=== PATIENT | female | born 1985 | race Caucasian/White ===

== ENCOUNTER 2016-05-21 06:32 | Outpatient (CLI) | payer MEDICAID, OTHER | END 2016-05-21 06:33 | disposition home or self-care (01) | DX: Z36 Encounter for antenatal screening of mother (principal) ==

== ENCOUNTER 2016-06-21 07:31 | Outpatient (CLI) | payer BC, MEDICAID | END 2016-06-21 07:32 | disposition home or self-care (01) | DX: Z34.82 Encounter for supervision of other normal pregnancy, second trimester (principal) ==

== ENCOUNTER 2017-12-18 11:54 | Outpatient (CLI) | payer OTHER, MEDICAID | END 2017-12-18 11:55 | disposition home or self-care (01) | LOC: LAB.R 11:54 | PROVIDERS: ATTEND Obstetrics & Gynecology | DX: R10.2 Pelvic and perineal pain (principal); Z11.3 Encounter for screening for infections with a predominantly sexual mode of transmission | CPT/HCPCS: 87491; 87591 ==

== ENCOUNTER 2017-12-19 08:00 | Outpatient (CLI) | payer OTHER, MEDICAID | END 2017-12-19 08:01 | disposition home or self-care (01) | LOC: LAB.N 08:00 | PROVIDERS: ATTEND Obstetrics & Gynecology | DX: R10.2 Pelvic and perineal pain (principal); Z11.3 Encounter for screening for infections with a predominantly sexual mode of transmission | CPT/HCPCS: 36415; 85651 ==

== ENCOUNTER 2017-12-29 16:43 | Outpatient (CLI) | payer OTHER, MEDICAID ==
--- NOTE | 2017-12-30 02:24 | Ultrasound Report ---
Reason: PELVIC AND PERINEAL PAIN Procedure Date: 12/29/2017 Accession Number: [id number] / [id number] Procedure: US - Pelvic w/Transvaginal CPT Code: FULL RESULT: EXAM: PELVIC ULTRASOUND EXAM DATE: 12/29/2017 05:31 PM. CLINICAL HISTORY: Pelvic pain. COMPARISON: None. TECHNIQUE: Real-time transabdominal pelvic scan performed to identify the uterus and adnexa and as an overview of other pelvic structures, followed by transvaginal scan to provide greater detail of the uterus and adnexa, with static image documentation. FINDINGS: Uterus: 8.3 x 4.3 x 6.5 cm, volume 121.3 cc. Anteverted position. Normal overall size and echotexture. Masses: None. Endometrium: 7.1 mm. No mass or polyp. Small echogenic foci are noted in the endometrium. Cervix: Unremarkable. Right Ovary: 3.7 x 2.2 x 2.2 cm, volume 9.4 cc. Normal echotexture and blood flow. Left Ovary: 2.8 x 1.3 x 2.8 cm, volume 5.3 cc. Normal echotexture and blood flow. Free Fluid: Trace free fluid noted. Other: None. IMPRESSION: 1. No endometrial mass or polyp. Small echogenic endometrial calcifications. 2. No uterine fibroids. 3. Both ovaries and adnexa are normal. RADIA
== END 2017-12-29 16:44 | disposition home or self-care (01) ==
LOC: DI 16:43
PROVIDERS: ATTEND Obstetrics & Gynecology
DX: R10.2 Pelvic and perineal pain (principal)
CPT/HCPCS: 76830; 76856

== ENCOUNTER 2018-02-10 14:25 | Outpatient (CLI) | payer OTHER, MEDICAID ==
[2018-02-10 15:26] LABS: CALCIUM 8.5 mg/dL (8.5-10.3); CREATININE 0.6 mg/dL (0.4-1.0)
[2018-02-10 15:41] LABS: BASOPHILS % (AUTO) 0.4 %; EOSINOPHILS # (AUTO) 0.1 10^3/uL (0.0-0.7); EOSINOPHILS % (AUTO) 1.9 %; HGB - HEMOGLOBIN 14.1 g/dL (12.0-16.0); LYMPHOCYTES # (AUTO) 1.6 10^3/uL (1.5-3.5); LYMPHOCYTES % (AUTO) 27.9 %; MEAN CORPUSCULAR HEMOGLOBIN 30.1 pg (27.0-31.0); MEAN CORPUSCULAR VOLUME 88.8 fL (81.0-99.0); MEAN PLATELET VOLUME 9.2 fL (7.9-10.8); MONOCYTES # (AUTO) 0.3 10^3/uL (0.0-1.0); MONOCYTES % (AUTO) 6.1 %; NEUTROPHILS # (AUTO) 3.6 10^3/uL (1.5-6.6); NEUTROPHILS % (AUTO) 63.7 %; PLT - PLATELET COUNT 177 10^3/uL (130-450); RED BLOOD COUNT 4.68 10^6/uL (4.20-5.40); RED CELL DISTRIBUTION WIDTH 13.1 % (12.0-15.0); WHITE BLOOD COUNT 5.6 x10^3/uL (4.8-10.8)
[2018-02-10 16:14] LABS: HCG UR QUAL NEGATIVE
== END 2018-02-10 14:26 | disposition home or self-care (01) ==
LOC: LAB 14:25
PROVIDERS: ATTEND Obstetrics & Gynecology
DX: Z01.812 Encounter for preprocedural laboratory examination (principal); R10.2 Pelvic and perineal pain; N92.0 Excessive and frequent menstruation with regular cycle
CPT/HCPCS: 36415; 80048; 81025; 85025; 86850; 86900; 86901

== ENCOUNTER 2018-02-11 06:14 | Day surgery (SDC) | payer OTHER, MEDICAID ==
--- NOTE | 2018-02-10 14:59 | PREOP HISTORY & PHYSICAL ---
DATE OF SERVICE: 02/10/2018 Physician: Eric Trejo MD PATIENT IDENTIFICATION: The patient is a 32-year-old G4, P4, female whose last menstrual period is S eptember 28. She is currently using condoms for contraception. CHIEF COMPLAINT: Pelvic pain as well as heavy vaginal bleeding. HISTORY OF PRESENT ILLNESS: The patient states that roughly 2 years ago, she developed right-sided p elvic pain. She states that she has had this around when she had an IUD. She states the pain is 7/1 0. It is enough to take her down at work. She is still able to work through it and is utilizing Mot rin. She has a history of having chlamydia infection in the remote past, roughly 17 years ago. She has not had an appendectomy. She also states she has pain with intercourse with deep penetration. S he also has difficulty with heavy vaginal bleeding, enough to make her anemic. She has been tried an IUD Mirena without success. She will need to change a pad or tampon every 2 hours. She will cramp when she passes clots. She also has a history of anemia. PAST MEDICAL HISTORY: Positive for anxiety and anemia. PAST SURGICAL HISTORY: LEEP. CURRENT MEDICATIONS: Celexa 10 mg daily, vitamin D, iron. ALLERGIES: NONE KNOWN. HABITS: The patient denies use of alcohol, tobacco or street or addictive drugs. SOCIAL HISTORY: The patient is and lives with spouse and children. Works as a [employer]. FAMILY HISTORY: Positive for diabetes. She denies any CORPORATE COMPLIANCE OFFICER cancer, such as cervix, breast or ovarian cancer. REVIEW OF SYSTEMS: Unremarkable. PHYSICAL EXAMINATION GENERAL: The patient is a well-developed, well-nourished white female. At this time, she is in no a cute distress. HEENT: Pupils are equal and round. Extraocular muscles are intact. Thyroid is not palpably enlarge d. Mouth shows evidence of a tongue piercing. HEART: Regular rate and rhythm without murmurs. LUNGS: Lung roy are clear without rales or wheezes. ABDOMEN: Shows tenderness in the right lower quadrant. There is no evidence of rebound, or masses. PELVIC: Previous pelvic: Showed normal external genitalia. The bladder was normal. The introitus was multiparous. There was no evidence of any cystocele or rectoceles at this time. Cervix showed e vidence of a previous LEEP procedure. Uterus was anteflexed without masses. There was tenderness in the right adnexa. IMPRESSION: Pelvic pain. This most likely represents adhesions on the right hand side and that is n ot menstrual related. She also has a history of menorrhagia. PLAN: Perform laparoscopy looking for evidence of adhesions and lysis if present. We will also perf orm a hysteroscopy with D and C. Risks and benefits have been explained to the patient, including th ose not limited to bleeding, infection, injury to pelvic organs. She is aware of the potential for D VT, PE, as well as postop adhesions, which could cause pain, bowel obstruction and infertility. TD: 02/10/2018 14:14
[2018-02-11] MEDS ORDERED: ceFAZolin 2 GM/50 ML 2 GM/50 ML BAG IV ONE (06:30)
[2018-02-11] MEDS ORDERED: LACTATED RINGERS 1,000 ML IV ONE ×2 (06:59→09:24)
--- NOTE | 2018-02-11 07:19 | ANESTHESIA ---
Pre-Anesthesia VS, & Labs - Diagnosis pelvic pain, menorrhagia - Procedure Dx laparoscopy, myosure hysteroscopy, D&C Height 5 ft 5 in Weight (kg) 62 kg - NPO >8 hours - Is Patient ?: No - Lab Results Lab results reviewed: Yes Home Medications and Allergies Home Medications: Ambulatory Orders Cholecalciferol (Vitamin D3) [Vitamin D3] 1 unit PO DAILY 02/10/18 Citalopram [CeleXA] 10 mg PO DAILY 02/10/18 Cholecalciferol (Vitamin D3) [Vitamin D3] 1 unit PO DAILY 02/10/18 Citalopram [CeleXA] 10 mg PO DAILY 02/10/18 Allergies/Adverse Reactions: Allergies Allergy/AdvReac Type Severity Reaction Status Date / Time bee venom protein (honey bee) Allergy Anaphylaxis Verified 02/10/18 16:02 Plastic tape/ adhesives Allergy Rash Uncoded 02/11/18 06:51 bee stings AdvReac Unknown Unknown Uncoded 09/17/13 13:43 Anes History & Medical History - Anesthetic History Anesthesia Complications: reports: No previous complications Family history of Anesthesia Complications: Denies Family history of Malignant Hyperthermia: Denies - Medical History Cardiovascular: reports: None Pulmonary: reports: None Gastrointestinal: reports: None Urinary: reports: None Musculoskeletal: reports: None Endocrine/Autoimmune: reports: None Skin: reports: None Smoking Status: Never smoker - Surgical History Gynecologic: LEEP (Cervical surgery) Exam General: Alert, Oriented x3, Cooperative, No acute distress Dental: Partials Upper Mouth Openin Fingerbreadth Neck Mobility: Normal Mallampati classification: II Respiratory: Lungs clear, Normal breath sounds, No respiratory distress, No accessory muscle use Cardiovascular: Regular rate, Normal S1, Normal S2, No murmurs Neurological: Normal speech Mental/Cognitive Status: Alert/Oriented X3 Cognitive Status: Within normal limits Plan Anesthesia Type: General Consent for Procedure(s) Verified and Reviewed: Yes Code Status: Attempt Resuscitation ASA classification: 2-Mild systemic disease Is this case an emergency?: No
[2018-02-11] MEDS ORDERED: BUPIVACAINE 0.5%-EPI 1:200000 PF 10 ML VIAL ONE (07:21)
[2018-02-11] MEDS ORDERED: DEXAMETHASONE 4 MG/ML VIAL IVP ONE (07:30)
[2018-02-11] MEDS ORDERED: PROPOFOL 200 MG/20 ML VIAL IVP ONE (07:30)
[2018-02-11] MEDS ORDERED: LIDOCAINE-MPF 2% 5 ML VIAL IM ONE (07:30)
[2018-02-11] MEDS ORDERED: KETOROLAC 30 MG/ML VIAL IVP ONE (07:30)
[2018-02-11] MEDS ORDERED: NEOSTIGMINE 1 MG/1 ML 10 ML MDV IVP ONE (07:30)
[2018-02-11] MEDS ORDERED: fentaNYL 100 MCG/2 ML VIAL IVP ONE (07:30)
[2018-02-11] MEDS ORDERED: ONDANSETRON 4 MG/2 ML VIAL IVP ONE (07:30)
[2018-02-11] MEDS ORDERED: ROCURONIUM 50 MG/5 ML VIAL IVP ONE (07:30)
[2018-02-11] MEDS ORDERED: METHYLERGONOVINE 0.2 MG/ML AMP IVP ONE (07:30)
[2018-02-11] MEDS ORDERED: MIDAZOLAM 2 MG/2 ML VIAL IVP ONE (07:30)
[2018-02-11] MEDS ORDERED: GLYCOPYRROLATE 1 MG/5 ML VIAL IVP ONE (07:30)
[2018-02-11] MEDS ORDERED: BUPIVACAINE 0.5%-EPI 1:200000 PF 30 ML VIAL SUBQ ONE (08:09)
[2018-02-11] MEDS ORDERED: MEPERIDINE 50 MG/ML VIAL ONE (09:12)
[2018-02-11] MEDS ORDERED: HYDROmorphone 0.5 MG/0.5 ML SYRINGE IVP PRN (09:24)
[2018-02-11] MEDS ORDERED: ONDANSETRON 4 MG/2 ML VIAL IVP PRN (09:24)
[2018-02-11] MEDS ORDERED: oxyCODONE 5 MG TABLET PO PRN (09:24)
[2018-02-11] MEDS ORDERED: LORazepam 2 MG/ML VIAL IVP PRN (09:24)
--- NOTE | 2018-02-11 09:30 | OPERATIVE REPORT ---
Operative Report - General Procedure Date: 02/11/18 Planned Procedure: Dx Laproscopy with Hysterscopy with D&C Pre-Op Diagnosis: right sided Pelvic pain, Menorrhagia Procedure Performed: Same - Procedure Note Primary Surgeon: Eric Trejo MD Secondary Surgeon: Eric Trammell MD Anesthesia Technique: General ET tube IV Fluids (mL): 1,100 Estimated Blood Loss (mL): 100
[2018-02-11 10:39] VITALS: BP 118/71
--- NOTE | 2018-02-11 11:34 | OPERATIVE REPORT ---
DATE OF SERVICE: 02/11/2018 Physician: Eric Trejo MD PREOPERATIVE DIAGNOSIS 1. Noncyclic right-sided pelvic pain, suspect adhesions. 2. Menorrhagia. POSTOPERATIVE DIAGNOSIS: 1. Normal pelvis without evidence of any adhesions or endometriosis. 2. Endometrial cavity was without polyps, fibroids, or other intraluminal structures. SURGEON: Dr. Eric Trejo. MEDICAL LABORATORY SCIENTIST: Dr. Eric Trammell. ANESTHESIA: General via endotracheal tube with Roney Castro CRNA. ESTIMATED BLOOD LOSS: 100 mL. IV FLUIDS: 1100 of LR. FINDINGS: Upon entering the abdominal cavity, there was no evidence of any injury at site of insertion. Tubes, ovaries, and bowel appeared to be totally free of adhesions or endometriosis. The ureters were noted to be in their normal course. The appendix appeared to be free of disease as well as gallbladder. Entering the endometrial cavity, both cornua were visualized. There was no evidence of any polyps, fibroids. The endometrial cavity appeared to be without evidence of any hyperemia. PROCEDURE: Following adequate endotracheal anesthesia, patient was placed in dorsal lithotomy position in [facility]. At this point, a pelvic examination was performed, at which the uterus was noted to be anterior, probably about 8-9 cm, the adnexa were not palpably enlarged, and there was no evidence of any masses. She was then prepped and draped in the usual fashion. A timeout was then performed in which that time, the patient was identified as well as concerned. A speculum was placed in the vagina, cervix visualized, grasped with a single-tooth tenaculum, and then an acorn manipulator was placed in the cervical os. At this time, the stitcher set up operator automatic's gloves were changed and a stab wound was made in the subumbilical region following local anesthesia with 0.25% Marcaine with epinephrine. Peritoneum was entered on a single pass with a 5 mm port with a laparoscope inside. Left and right lower quadrant incisions were made following local anesthesia 0.25% Marcaine with epinephrine. Both 5 mm trocars were placed under direct visualization. The site of insertion was inspected, and no evidence of any injury. The entire pelvis was inspected without evidence of adhesions, endometriosis. There was some what appeared to be hyperemia. The round ligament insertion was noted to be normal. The ureter on the right hand side as well as the left hand side were visualized and noted to be nondilated. The gallbladder was inspected, noted to be without adhesions. The appendix was noted to be nonhyperemic. At this point, the laparoscope was removed from the abdominal cavity, and the CO2 was allowed to escape. The ports were allowed to remain in their place. Attention was then turned to the vagina. The cervix was visualized, a speculum was placed, and the cervix was dilated up to 6 mm. A MyoSure was then introduced into the endometrial cavity. Both ostia were inspected bilaterally. The endometrial cavity was without polyps or fibroids. The posterior endometrium showed evidence of the previous dilatation. A MyoSure was conducted over a part of the endometrial lining. During this time, she was noted to have 1100 mL of deficit of her normal saline, and so the procedure was terminated. Upon doing a manual recalculation, the deficit was only 500 mL of normal saline. At this point, the stitcher set up operator automatic's gloves were changed, and a second camera and cord were placed in the abdominal cavity. The abdomen was inspected. There was scant fluid in the cul-de-sac. There was no evidence of any extravasation of fluid in the abdominal cavity. At this time, both left and right trocars were removed under direct visualization. The CO2 was allowed to escape as much as possible. Following this, the subumbilical port was removed. Both ports were closed with 4-0 Monocryl subcuticular with Dermabond being placed. The instruments were then removed from the vagina. Patient tolerated procedure well and was taken to recovery in stable condition. TD: 02/11/2018 09:47 FRANK
== END 2018-02-11 06:15 | disposition home or self-care (01) ==
LOC: SDS 06:14
PROVIDERS: ATTEND Obstetrics & Gynecology
PROC: 0WJJ4ZZ Inspection of Pelvic Cavity, Percutaneous Endoscopic Approach (ICD-10-PCS; 2018-02-11)
PROC: 0UDB8ZX Extraction of Endometrium, Via Natural or Artificial Opening Endoscopic, Diagnostic (ICD-10-PCS; principal; 2018-02-11 07:30)
DX: R10.2 Pelvic and perineal pain (principal); N92.0 Excessive and frequent menstruation with regular cycle; E11.9 Type 2 diabetes mellitus without complications
CPT/HCPCS: 49320; 58558; J0690; J2175; J7120

== ENCOUNTER 2019-03-10 10:34 | Outpatient (CLI) | payer BC, OTHER ==
--- NOTE | 2019-03-10 15:04 | XRAY Report ---
Reason: PAIN IN RIGHT HAND Procedure Date: 03/10/2019 Accession Number: [id number] / [id number] Procedure: XRN - Hand 3 View RT CPT Code: Final Report FULL RESULT: EXAM: RIGHT HAND RADIOGRAPHY EXAM DATE: 03/10/2019 10:52 AM. CLINICAL HISTORY: Pain in right hand. COMPARISON: None. TECHNIQUE: 3 views. FINDINGS: Bones: Normal. No fractures or bone lesions. Joints: Normal. No subluxations. Soft Tissues: Normal. No soft tissue swelling. IMPRESSION: Normal hand radiography. RADIA
== END 2019-03-10 10:35 | disposition home or self-care (01) ==
LOC: DI.N 10:34
PROVIDERS: ATTEND Physician Assistant Medical
DX: M79.641 Pain in right hand (principal)

== ENCOUNTER 2019-11-24 13:50 | Outpatient (CLI) | payer BC ==
[2019-11-24 14:24] LABS: CHOL/HDL RATIO 2.4 (<4.4); CHOLESTEROL 151 mg/dL; HDL CHOLESTEROL 63 mg/dL; LDL CHOLESTEROL,CALCULATED 74 mg/dL; LDL/HDL RATIO 1.2 (<4.4); VLDL CHOLESTEROL 14 mg/dL
[2019-11-25 11:43] LABS: HIV AG/AB 4TH GEN NON-REACTIVE (NON-REACTIVE)
[2019-11-25 16:08] LABS: HEPATITIS B SURFACE ANTIGEN NON-REACTIVE (NON-REACTIVE)
== END 2019-11-24 13:51 | disposition home or self-care (01) ==
LOC: LAB 13:50
PROVIDERS: ATTEND Obstetrics & Gynecology
DX: Z13.220 Encounter for screening for lipoid disorders (principal); Z11.3 Encounter for screening for infections with a predominantly sexual mode of transmission
CPT/HCPCS: 36415; 80061; 81599; 83721; 86592; 87340; 87389

== ENCOUNTER 2021-07-24 10:05 | Outpatient (CLI) | payer BC ==
[2021-07-24 11:51] LABS: BASOPHILS % (AUTO) 0.2 %; EOSINOPHILS # (AUTO) 0.1 10^3/uL (0.0-0.7); EOSINOPHILS % (AUTO) 1.1 %; HCT - HEMATOCRIT 43.4 % (37.0-47.0); HGB - HEMOGLOBIN 14.5 g/dL (12.0-16.0); LYMPHOCYTES # (AUTO) 1.8 10^3/uL (1.5-3.5); LYMPHOCYTES % (AUTO) 32.6 %; MEAN CORPUSCULAR HEMOGLOBIN 30.3 pg (27.0-31.0); MEAN CORPUSCULAR HGB CONC 33.4 g/dL (32.0-36.0); MEAN CORPUSCULAR VOLUME 90.8 fL (81.0-99.0); MEAN PLATELET VOLUME 9.9 fL (7.9-10.8); MONOCYTES # (AUTO) 0.4 10^3/uL (0.0-1.0); NEUTROPHILS # (AUTO) 3.3 10^3/uL (1.5-6.6); NEUTROPHILS % (AUTO) 58.9 %; PLT - PLATELET COUNT 219 10^3/uL (130-450); RED BLOOD COUNT 4.78 10^6/uL (4.20-5.40); RED CELL DISTRIBUTION WIDTH 12.4 % (12.0-15.0); WHITE BLOOD COUNT 5.6 x10^3/uL (4.8-10.8)
[2021-07-24 12:30] LABS: ALBUMIN 4.1 g/dL (3.2-5.5); ALBUMIN/GLOBULIN RATIO 1.3 (1.0-2.2); ALKALINE PHOSPHATASE 44 IU/L (42-121); ALT ALANINE AMINOTRANSFERASE 15 IU/L (10-60); AST ASPARTATE AMINOTRANSFERASE 15 IU/L (10-42); BILIRUBIN,TOTAL 0.7 mg/dL (0.2-1.0); BUN - BLOOD UREA NITROGEN 14 mg/dL (6-20); CALCIUM 8.7 mg/dL (8.5-10.3); CARBON DIOXIDE - CO2 28 mmol/L (21-32); CHLORIDE 105 mmol/L (101-111); CHOL/HDL RATIO 2.9 (<4.4); CHOLESTEROL 215 mg/dL; CREATININE 0.7 mg/dL (0.4-1.0); GFR - MDRD 94 (>89); GLUCOSE 92 mg/dL (70-100); HDL CHOLESTEROL 75 mg/dL; LDL CHOLESTEROL,CALCULATED 121 mg/dL; LDL/HDL RATIO 1.6 (<4.4); POTASSIUM 4.1 mmol/L (3.5-5.0); SODIUM 140 mmol/L (135-145); TOTAL PROTEIN 7.3 g/dL (6.7-8.2); TRIGLYCERIDES 96 mg/dL; VLDL CHOLESTEROL 19 mg/dL
[2021-07-24 12:36] LABS: ESTIMATED AVERAGE GLUCOSE 105 mg/dL (70-100); HEMOGLOBIN A1c% 5.3 % (4.27-6.07)
[2021-07-24 12:38] LABS: THYROID STIMULATING HORMONE 0.92 uIU/mL (0.34-5.60)
== END 2021-07-24 10:06 | disposition home or self-care (01) ==
LOC: LAB.N 10:05
PROVIDERS: ATTEND Nurse Practitioner Family
DX: Z13.220 Encounter for screening for lipoid disorders (principal); Z13.21 Encounter for screening for nutritional disorder; R68.89 Other general symptoms and signs; Z13.1 Encounter for screening for diabetes mellitus
CPT/HCPCS: 36415; 80053; 80061; 82306; 83036; 83721; 84443; 85025

== ENCOUNTER 2022-01-16 10:01 | Outpatient (CLI) | payer BC ==
[2022-01-16 12:01] LABS: BASOPHILS % (AUTO) 0.4 %; EOSINOPHILS # (AUTO) 0.1 10^3/uL (0.0-0.7); EOSINOPHILS % (AUTO) 1.4 %; HCT - HEMATOCRIT 43.5 % (37.0-47.0); HGB - HEMOGLOBIN 14.2 g/dL (12.0-16.0); LYMPHOCYTES # (AUTO) 1.8 10^3/uL (1.5-3.5); LYMPHOCYTES % (AUTO) 32.5 %; MEAN CORPUSCULAR HEMOGLOBIN 29.2 pg (27.0-31.0); MEAN CORPUSCULAR HGB CONC 32.6 g/dL (32.0-36.0); MEAN CORPUSCULAR VOLUME 89.3 fL (81.0-99.0); MEAN PLATELET VOLUME 10.4 fL (7.9-10.8); MONOCYTES # (AUTO) 0.4 10^3/uL (0.0-1.0); MONOCYTES % (AUTO) 7.4 %; NEUTROPHILS # (AUTO) 3.2 10^3/uL (1.5-6.6); NEUTROPHILS % (AUTO) 58.1 %; PLT - PLATELET COUNT 221 10^3/uL (130-450); RED BLOOD COUNT 4.87 10^6/uL (4.20-5.40); RED CELL DISTRIBUTION WIDTH 12.4 % (12.0-15.0); WHITE BLOOD COUNT 5.5 x10^3/uL (4.8-10.8)
== END 2022-01-16 10:02 | disposition home or self-care (01) ==
LOC: LAB.N 10:01
PROVIDERS: ATTEND Physician Assistant
DX: T14.8XXD Other injury of unspecified body region, subsequent encounter (principal); W55.01XD Bitten by cat, subsequent encounter
CPT/HCPCS: 36415; 85025; 86140

== ENCOUNTER 2022-01-16 10:07 | Outpatient (CLI) | payer BC ==
--- NOTE | 2022-01-16 10:43 | XRAY Report ---
PROCEDURE: Finger(s) LT INDICATIONS: CAT BITE, L 3RD DIGIT TECHNIQUE: AP hand, 2 views of the third finger(s) acquired. COMPARISON: None FINDINGS: Bones: No fractures or dislocations. No suspicious bony lesions. There are no findings to suggest osteomyelitis. Soft tissues: No suspicious soft tissue calcifications. IMPRESSION: Negative left hand and left third finger. Reviewed by: Khalif Dickinson MD on 01/16/2022 10:42 AM PDT Approved by: Khalif Dickinson MD on 01/16/2022 10:42 AM PDT Station ID: [id number]
== END 2022-01-16 10:08 | disposition home or self-care (01) ==
LOC: DI.N 10:07
PROVIDERS: ATTEND Physician Assistant
DX: S61.253D Open bite of left middle finger without damage to nail, subsequent encounter (principal); T14.8XXD Other injury of unspecified body region, subsequent encounter
CPT/HCPCS: 36415; 85025; 86140

== ENCOUNTER 2022-02-01 13:43 | Emergency (ER) | payer BC ==
[2022-02-01 14:28] LABS: BILIRUBIN,URINE NEGATIVE (NEGATIVE); GLUCOSE, URINE (UA) NEGATIVE (NEGATIVE); KETONES,URINE (UA) NEGATIVE (NEGATIVE); LEUKOCYTE ESTERASE, URINE NEGATIVE (NEGATIVE); NITRITE,URINE NEGATIVE (NEGATIVE); OCCULT BLOOD,URINE NEGATIVE (NEGATIVE); PROTEIN,URINE NEGATIVE (NEGATIVE); UROBILINOGEN,URINE 0.2 (NORMAL) E.U./dL (NORMAL)
[2022-02-01 14:30] LABS: CLARITY,URINE CLEAR (CLEAR); HCG UR QUAL NEGATIVE
[2022-02-01 14:30] LABS: BASOPHILS % (AUTO) 0.3 %; EOSINOPHILS % (AUTO) 0.6 %; HCT - HEMATOCRIT 45.5 % (37.0-47.0); HGB - HEMOGLOBIN 15.3 g/dL (12.0-16.0); LYMPHOCYTES # (AUTO) 1.7 10^3/uL (1.5-3.5); LYMPHOCYTES % (AUTO) 26.2 %; MEAN CORPUSCULAR HEMOGLOBIN 30.5 pg (27.0-31.0); MEAN CORPUSCULAR HGB CONC 33.6 g/dL (32.0-36.0); MEAN CORPUSCULAR VOLUME 90.6 fL (81.0-99.0); MEAN PLATELET VOLUME 9.6 fL (7.9-10.8); MONOCYTES # (AUTO) 0.4 10^3/uL (0.0-1.0); MONOCYTES % (AUTO) 5.7 %; NEUTROPHILS # (AUTO) 4.4 10^3/uL (1.5-6.6); NEUTROPHILS % (AUTO) 66.9 %; PLT - PLATELET COUNT 222 10^3/uL (130-450); RED BLOOD COUNT 5.02 10^6/uL (4.20-5.40); RED CELL DISTRIBUTION WIDTH 12.2 % (12.0-15.0); WHITE BLOOD COUNT 6.6 x10^3/uL (4.8-10.8)
--- OUTSIDE RECORDS SUMMARY | 2022-02-01 14:30 | EXTERNAL MEDICAL SUMMARY RPT | Continuity of Care Document ---
:1985 Author Organization [facility] Address [address] [place] [address] Phone Allergies No information. Encounters No information. Functional Status No information. Immunizations No information. Medications No information. Problems No information. Procedures No information. Results/Labs test date author facility value unit interpret ation Result panel 1 (unknown) (no (unknown) (unknown) (no value) (units (unk nown) date) unknown) (unknown) (no (unknown) (unknown) (no value) (units (unk nown) date) unknown) (unknown) (no (unknown) (unknown) (no value) (units (unk nown) date) unknown) (unknown) (no (unknown) (unknown) 12/08/21 (units (unkno wn) date) unknown) (unknown) (no (unknown) (unknown) 13:14 (units (unkno wn) date) unknown) (unknown) (no (unknown) (unknown) [facility] (units (unknown) date) Medicine unknown) (unknown) (no (unknown) (unknown) [place], [place] (units ( unknown) date) [id number] unknown) (unknown) (no (unknown) (unknown) [facility] (units (unkno wn) date) unknown) (unknown) (no (unknown) (unknown) Family Practice (units (unknown) date) Office Visit unknown) (unknown) (no (unknown) (unknown) (no value) (units (unk nown) date) unknown) (unknown) (no (unknown) (unknown) [id number] (units (unk nown) date) unknown) (unknown) (no (unknown) (unknown) 12/08/21 (units (unkno wn) date) unknown) (unknown) (no (unknown) (unknown) 12/08/21] (units (unkn own) date) unknown) (unknown) (no (unknown) (unknown) 1312 (units (unkno wn) date) unknown) (unknown) (no (unknown) (unknown) Age/Sex: 36 / F (units (unknown) date) Date of Service: unknown) (unknown) (no (unknown) (unknown) Allergies (units (unkn own) date) unknown) (unknown) (no (unknown) (unknown) Attending Dr: (units ( unknown) date) Kathleen Choudhary unknown) P.A-C (unknown) (no (unknown) (unknown) BMI 25.0 (units (unkno wn) date) unknown) (unknown) (no (unknown) (unknown) BP 116/70 (units (unkn own) date) unknown) (unknown) (no (unknown) (unknown) Blood Pressure (units (unknown) date) Location Lt unknown) brachial (unknown) (no (unknown) (unknown) : 1985 (units (unknown) date) Acct:[id number] unknown) (unknown) (no (unknown) (unknown) Dept at (units (unkno wn) date) . unknown) (unknown) (no (unknown) (unknown) Documented By: (units (unknown) date) Kathleen Choudhary unknown) [place] 12/08/21 (unknown) (no (unknown) (unknown) Height 5 ft 5 in (units (unknown) date) unknown) (unknown) (no (unknown) (unknown) Intake (units (unkno wn) date) unknown) (unknown) (no (unknown) (unknown) Intake Note: (units (u nknown) date) unknown) (unknown) (no (unknown) (unknown) Intake performed (units (unknown) date) by: unknown) Yordan Gonzalez (unknown) (no (unknown) (unknown) Intake- Clincial (units (unknown) date) Staff unknown) (unknown) (no (unknown) (unknown) Last Menstural (units (unknown) date) Cycle + Details unknown) (unknown) (no (unknown) (unknown) Loc: [facility] (units (unkno wn) date) unknown) (unknown) (no (unknown) (unknown) Medical History (units (unknown) date) (Updated 07/30/19 unknown) @ 00:00 by ) (unknown) (no (unknown) (unknown) Medications (units (un known) date) unknown) (unknown) (no (unknown) (unknown) No Known Drug (units ( unknown) date) Allergies Allergy unknown) (Verified 12/08/21 13:14) (unknown) (no (unknown) (unknown) Other Menstrual (units (unknown) date) Period: Other unknown) (unknown) (no (unknown) (unknown) Oxygen Delivery (units (unknown) date) Method room air unknown) (unknown) (no (unknown) (unknown) PFSH (units (unkno wn) date) unknown) (unknown) (no (unknown) (unknown) Patient denies (units (unknown) date) significant unknown) medical history (unknown) (no (unknown) (unknown) Patient: (units (unkno wn) date) Keira Ahuja unknown) A MR#: (unknown) (no (unknown) (unknown) Position Sitting (units (unknown) date) unknown) (unknown) (no (unknown) (unknown) Pt presents with (units (unknown) date) scratches on unknown) hands from a cat a couple hours ago. (unknown) (no (unknown) (unknown) Pulse 58 L (units (unk nown) date) unknown) (unknown) (no (unknown) (unknown) Pulse Oximetry (units (unknown) date) (%) 100 unknown) (unknown) (no (unknown) (unknown) Pulse Source (units (u nknown) date) Monitor unknown) (unknown) (no (unknown) (unknown) Reason For Visit (units (unknown) date) unknown) (unknown) (no (unknown) (unknown) Respiration 16 (units (unknown) date) unknown) (unknown) (no (unknown) (unknown) Signed By: (units (unk nown) date) unknown) (unknown) (no (unknown) (unknown) Smoking Status: (units (unknown) date) Never smoker unknown) (unknown) (no (unknown) (unknown) Social History (units (unknown) date) unknown) (unknown) (no (unknown) (unknown) Temp 97.3 F L (units ( unknown) date) unknown) (unknown) (no (unknown) (unknown) Temp Source Skin (units (unknown) date) unknown) (unknown) (no (unknown) (unknown) This note may (units ( unknown) date) have been all or unknown) partially generated using voice recognition (unknown) (no (unknown) (unknown) Tobacco + (units (unkn own) date) Substance Use unknown) (unknown) (no (unknown) (unknown) Tobacco Status (units (unknown) date) unknown) (unknown) (no (unknown) (unknown) Visit Reasons: (units (unknown) date) attacked by cat unknown) cuts on both hands (unknown) (no (unknown) (unknown) Vitals (units (unkno wn) date) unknown) (unknown) (no (unknown) (unknown) Weight 150 lb (units ( unknown) date) unknown) (unknown) (no (unknown) (unknown) alcohol intake: (units (unknown) date) current unknown) (unknown) (no (unknown) (unknown) have occurred. (units (unknown) date) If there are any unknown) questions, please contact the Medical Records (unknown) (no (unknown) (unknown) household (units (unkn own) date) members: unknown) significant other (unknown) (no (unknown) (unknown) may occur. (units (unk nown) date) Occasional unknown) wrong-word or 'sound-alike' substitutions may have (unknown) (no (unknown) (unknown) occurred due to (units (unknown) date) the inherent unknown) limitations of voice recognition software. Please (unknown) (no (unknown) (unknown) prenat.vits,irving, (units (unknown) date) [id number] 1 unknown) tab PO DAILY 02/15/21 [History Confirmed (unknown) (no (unknown) (unknown) read the note (units ( unknown) date) carefully and unknown) recognize, using context, where these substitutions (unknown) (no (unknown) (unknown) software. (units (unkn own) date) Although every unknown) effort is made to edit content, soybean grower errors Result panel 2 (unknown) (no (unknown) (unknown) (no value) (units (unk nown) date) unknown) (unknown) (no (unknown) (unknown) Medications: (units (u nknown) date) unknown) (unknown) (no (unknown) (unknown) Qualifiers: (units (un known) date) unknown) (unknown) (no (unknown) (unknown) (no value) (units (unk nown) date) unknown) (unknown) (no (unknown) (unknown) (no value) (units (unk nown) date) unknown) (unknown) (no (unknown) (unknown) 12/08/21 (units (unkno wn) date) unknown) (unknown) (no (unknown) (unknown) 12/08/21 1350 (units ( unknown) date) unknown) (unknown) (no (unknown) (unknown) 13:14 (units (unkno wn) date) unknown) (unknown) (no (unknown) (unknown) [facility] (units (unknown) date) Medicine unknown) (unknown) (no (unknown) (unknown) [place], [place] (units ( unknown) date) [id number] unknown) (unknown) (no (unknown) (unknown) Encounter type: (units (unknown) date) initial encounter unknown) Laterality: unspecified laterality (unknown) (no (unknown) (unknown) Family Practice (units (unknown) date) Office Visit unknown) (unknown) (no (unknown) (unknown) Signed (units (unkno wn) date) unknown) (unknown) (no (unknown) (unknown) (no value) (units (unk nown) date) unknown) (unknown) (no (unknown) (unknown) [id number] (units (unk nown) date) unknown) (unknown) (no (unknown) (unknown) (1) Cat bite of (units (unknown) date) hand: unknown) (unknown) (no (unknown) (unknown) 12/08/21 (units (unkno wn) date) unknown) (unknown) (no (unknown) (unknown) 12/08/21] (units (unkn own) date) unknown) (unknown) (no (unknown) (unknown) 1312 (units (unkno wn) date) unknown) (unknown) (no (unknown) (unknown) Age/Sex: 36 / F (units (unknown) date) Date of Service: unknown) (unknown) (no (unknown) (unknown) Allergies (units (unkn own) date) unknown) (unknown) (no (unknown) (unknown) Assessment + (units (u nknown) date) Plan unknown) (unknown) (no (unknown) (unknown) Attending Dr: (units ( unknown) date) Kathleen Choudhary unknown) [place] (unknown) (no (unknown) (unknown) BMI 25.0 (units (unkno wn) date) unknown) (unknown) (no (unknown) (unknown) BP 116/70 (units (unkn own) date) unknown) (unknown) (no (unknown) (unknown) Blood Pressure (units (unknown) date) Location Lt unknown) brachial (unknown) (no (unknown) (unknown) CARDIOVASCULAR: (units (unknown) date) Denies chest unknown) pain, pressure, palpitations, or edema (unknown) (no (unknown) (unknown) CARDIOVASCULAR: (units (unknown) date) Regular rate and unknown) rhythm without murmurs, gallops, or rubs. (unknown) (no (unknown) (unknown) Chief Complaint (units (unknown) date) unknown) (unknown) (no (unknown) (unknown) Chief Complaint: (units (unknown) date) Cat bite unknown) (unknown) (no (unknown) (unknown) : 1985 (units (unknown) date) Acct:[id number] unknown) (unknown) (no (unknown) (unknown) Dept at (units (unkno wn) date) . unknown) (unknown) (no (unknown) (unknown) Details: (units (unkno wn) date) unknown) (unknown) (no (unknown) (unknown) Documented By: (units (unknown) date) Kathleen Choudhary unknownMarcelino Mead 12/08/21 (unknown) (no (unknown) (unknown) Exam (units (unkno wn) date) unknown) (unknown) (no (unknown) (unknown) Exam Narrative (units (unknown) date) unknown) (unknown) (no (unknown) (unknown) Exam Narrative: (units (unknown) date) unknown) (unknown) (no (unknown) (unknown) GENERAL: (units (unkno wn) date) Well-developed unknown) patient, in mild distress. (unknown) (no (unknown) (unknown) GENERAL: Denies (units (unknown) date) fatigue, fever, unknown) or chills (unknown) (no (unknown) (unknown) HEENT: Denies (units ( unknown) date) ear pain, vision unknown) changes, sore throat, or difficulty swallowing (unknown) (no (unknown) (unknown) HEENT: PERRLA. (units (unknown) date) Airway patent. unknown) (unknown) (no (unknown) (unknown) HPI (units (unkno wn) date) unknown) (unknown) (no (unknown) (unknown) Height 165.1 cm (units (unknown) date) unknown) (unknown) (no (unknown) (unknown) Instructed her (units (unknown) date) to keep wounds unknown) clean, dry, and to apply topical antibacterial (unknown) (no (unknown) (unknown) Intake (units (unkno wn) date) unknown) (unknown) (no (unknown) (unknown) Intake Note: (units (u nknown) date) unknown) (unknown) (no (unknown) (unknown) Intake performed (units (unknown) date) by: unknown) Yordan Gonzalez (unknown) (no (unknown) (unknown) Intake- Clincial (units (unknown) date) Staff unknown) (unknown) (no (unknown) (unknown) Last Menstural (units (unknown) date) Cycle + Details unknown) (unknown) (no (unknown) (unknown) Loc: [facility] (units (unkno wn) date) unknown) (unknown) (no (unknown) (unknown) Medical History (units (unknown) date) (Reviewed unknown) 12/08/21 @ 13:44 by Kathleen Choudhary PA-C) (unknown) (no (unknown) (unknown) Medications (units (un known) date) unknown) (unknown) (no (unknown) (unknown) NEUROLOGIC: (units (un known) date) Denies weakness, unknown) dizziness, headache, numbness, tingling or (unknown) (no (unknown) (unknown) New (units (unkno wn) date) unknown) (unknown) (no (unknown) (unknown) No Known Drug (units ( unknown) date) Allergies Allergy unknown) (Verified 12/08/21 13:14) (unknown) (no (unknown) (unknown) Other Menstrual (units (unknown) date) Period: Other unknown) (unknown) (no (unknown) (unknown) Oxygen Delivery (units (unknown) date) Method room air unknown) (unknown) (no (unknown) (unknown) PFSH (units (unkno wn) date) unknown) (unknown) (no (unknown) (unknown) Patient denies (units (unknown) date) significant unknown) medical history (unknown) (no (unknown) (unknown) Patient is a 36 (units (unknown) date) year old female unknown) presenting after cat bites to both hands. Cat (unknown) (no (unknown) (unknown) Patient: (units (unkno wn) date) Keira Ahuja unknown) A MR#: (unknown) (no (unknown) (unknown) Plan (units (unkno wn) date) unknown) (unknown) (no (unknown) (unknown) Position Sitting (units (unknown) date) unknown) (unknown) (no (unknown) (unknown) Present to ER (units ( unknown) date) with any acute unknown) concerns. Findings and return precautions (unknown) (no (unknown) (unknown) Prophylactic (units (u nknown) date) antibiotic unknown) prescription sent in to patient's pharmacy of choice. (unknown) (no (unknown) (unknown) Pt presents with (units (unknown) date) scratches on unknown) hands from a cat a couple hours ago. (unknown) (no (unknown) (unknown) Pulse 58 L (units (unk nown) date) unknown) (unknown) (no (unknown) (unknown) Pulse Oximetry (units (unknown) date) (%) 100 unknown) (unknown) (no (unknown) (unknown) Pulse Source (units (u nknown) date) Monitor unknown) (unknown) (no (unknown) (unknown) Qualified (units (unkn own) date) Code(s): S61.459A unknown) - Open bite of unspecified hand, initial encounter; (unknown) (no (unknown) (unknown) RESPIRATORY: (units (un known) date) Clear to unknown) auscultation. Breath sounds equal bilaterally. No wheezes, (unknown) (no (unknown) (unknown) RESPIRATORY: (units (u nknown) date) Denies shortness unknown) of breath, cough, or wheezing (unknown) (no (unknown) (unknown) ROS (units (unkno wn) date) unknown) (unknown) (no (unknown) (unknown) ROS Narrative (units ( unknown) date) unknown) (unknown) (no (unknown) (unknown) ROS Narrative: (units (unknown) date) unknown) (unknown) (no (unknown) (unknown) Reason For Visit (units (unknown) date) unknown) (unknown) (no (unknown) (unknown) Respiration 16 (units (unknown) date) unknown) (unknown) (no (unknown) (unknown) SKIN: Multiple (units (unknown) date) small puncture unknown) wounds on distal aspect of 3rd digit on right (unknown) (no (unknown) (unknown) SKIN: See HPI (units ( unknown) date) unknown) (unknown) (no (unknown) (unknown) Signed By: (units (unk nown) date) <Electronically unknown) signed by Kathleen Choudhary> (unknown) (no (unknown) (unknown) Smoking Status: (units (unknown) date) Never smoker unknown) (unknown) (no (unknown) (unknown) Social History (units (unknown) date) unknown) (unknown) (no (unknown) (unknown) Temp 97.3 F L (units ( unknown) date) unknown) (unknown) (no (unknown) (unknown) Temp Source Skin (units (unknown) date) unknown) (unknown) (no (unknown) (unknown) This note may (units ( unknown) date) have been all or unknown) partially generated using voice recognition (unknown) (no (unknown) (unknown) Tobacco + (units (unkn own) date) Substance Use unknown) (unknown) (no (unknown) (unknown) Tobacco Status (units (unknown) date) unknown) (unknown) (no (unknown) (unknown) Visit Reasons: (units (unknown) date) attacked by cat unknown) cuts on both hands (unknown) (no (unknown) (unknown) Vitals (units (unkno wn) date) unknown) (unknown) (no (unknown) (unknown) W55.01XA - (units (unk nown) date) Bitten by cat, unknown) initial encounter (unknown) (no (unknown) (unknown) Weight 68.039 kg (units (unknown) date) unknown) (unknown) (no (unknown) (unknown) alcohol intake: (units (unknown) date) current unknown) (unknown) (no (unknown) (unknown) amoxicillin 875 (units (unknown) date) mg-potassium unknown) clavulanate 125 mg tablet 1 tab PO BID 5 days #10 (unknown) (no (unknown) (unknown) amoxicillin-pot (units (unknown) date) clavulanate unknown) 875-125 mg 1 tab PO BID 5 days 10 tabs 0RF (unknown) (no (unknown) (unknown) bites happened 2 (units (unknown) date) hours ago. She unknown) washed her hands with soap and water after (unknown) (no (unknown) (unknown) bleeding. No (units (u nknown) date) significant unknown) lacerations. Full ROM. (unknown) (no (unknown) (unknown) confusion (units (unkn own) date) unknown) (unknown) (no (unknown) (unknown) discussed with (units (unknown) date) patient/family unknown) who verbalized understanding. (unknown) (no (unknown) (unknown) finger is (units (unkn own) date) severely painful. unknown) She has been icing with little relief. (unknown) (no (unknown) (unknown) hand and 2nd (units (u nknown) date) digit on left unknown) hand. Tender to palpation. Wounds are not actively (unknown) (no (unknown) (unknown) have occurred. (units (unknown) date) If there are any unknown) questions, please contact the Medical Records (unknown) (no (unknown) (unknown) household (units (unkn own) date) members: unknown) significant other (unknown) (no (unknown) (unknown) incident (units (unkno wn) date) occurred and unknown) presented to [facility]. She reports the bite on her right (unknown) (no (unknown) (unknown) may occur. (units (unk nown) date) Occasional unknown) wrong-word or 'sound-alike' substitutions may have (unknown) (no (unknown) (unknown) occurred due to (units (unknown) date) the inherent unknown) limitations of voice recognition software. Please (unknown) (no (unknown) (unknown) ointment. (units (unkn own) date) Tylenol and unknown) ibuprofen as needed for pain management. Educated on (unknown) (no (unknown) (unknown) prenat.vits,irving, (units (unknown) date) [id number] 1 unknown) tab PO DAILY 02/15/21 [History Confirmed (unknown) (no (unknown) (unknown) rales, or (units (unkn own) date) rhonchi. unknown) (unknown) (no (unknown) (unknown) read the note (units ( unknown) date) carefully and unknown) recognize, using context, where these substitutions (unknown) (no (unknown) (unknown) signs of (units (unkno wn) date) infection to unknown) watch for. Follow up with primary if symptoms persist. (unknown) (no (unknown) (unknown) software. (units (unkn own) date) Although every unknown) effort is made to edit content, soybean grower errors (unknown) (no (unknown) (unknown) tabs 12/08/21 (units ( unknown) date) [Rx Confirmed unknown) 12/08/21] Social History No information. Vital Signs No information.
[2022-02-01 14:45] LABS: ALBUMIN 4.4 g/dL (3.2-5.5); ALBUMIN/GLOBULIN RATIO 1.3 (1.0-2.2); BILIRUBIN,TOTAL 0.8 mg/dL (0.2-1.0); CALCIUM 9.2 mg/dL (8.5-10.3); CREATININE 0.7 mg/dL (0.4-1.0); POTASSIUM 4.6 mmol/L (3.5-5.0); TOTAL PROTEIN 7.7 g/dL (6.7-8.2)
[2022-02-01] MEDS ORDERED: MORPHINE 2 MG/ML CARPUJECT IVP STA (16:04)
[2022-02-01] MEDS ORDERED: ONDANSETRON 4 MG/2 ML VIAL IVP STA (16:04)
--- NOTE | 2022-02-01 17:04 | CT Report ---
PROCEDURE: Abdomen/Pelvis W INDICATIONS: RLQ pain CONTRAST: IV CONTRAST: Optiray 320 ml: 100 PO CONTRAST: *NO PO CONTRAST TECHNIQUE: After the administration of weight appropriate dose of intravenous contrast, 5 mm thick sections acqu ired from the diaphragms to the symphysis. 5 mm thick coronal and sagittal reformats were acquired. For radiation dose reduction, the following was used: automated exposure control, adjustment of mA and/or kV according to patient size. COMPARISON: None. FINDINGS: Image quality: Excellent. ABDOMEN: Lung bases: Mild bibasilar atelectasis. Heart size is normal. Solid organs: Liver and spleen are normal in size and enhancement. There is diffuse hepatic steatos is. Gallbladder is unremarkable. Biliary system is non dilated. Pancreas enhances normally. No adr enal nodules. Kidneys demonstrate normal size and enhancement, without hydronephrosis. Peritoneum and bowel: Bowel loops demonstrate normal wall thickness and caliber. The appendix is no t definitively visualized. However, no secondary findings for acute inflammatory changes are noted. N o free fluid or air. Nodes and vessels: No retroperitoneal or mesenteric adenopathy by size criteria. Aorta and inferior vena cava are normal in size. Miscellaneous: Very small fat-containing umbilical hernia without acute inflammation. PELVIS: Genitourinary: Bladder wall thickness is normal. Miscellaneous: No inguinal hernias or adenopathy. Bones: No suspicious bony lesions. No acute vertebral body compression fractures. Lower lumbar spo ndylosis. IMPRESSION: CT abdomen and pelvis without acute abnormalities to explain patient's right lower quadrant abdominal pain. The appendix is not definitively visualized; however, no secondary findings for acute inflamma tion identified. No evidence for obstructive uropathy. Mild hepatic steatosis. Reviewed by: Magan Leblanc MD on 02/01/2022 5:03 PM PDT Approved by: Magan Leblanc MD on 02/01/2022 5:03 PM PDT Station ID: [id number]
--- NOTE | 2022-02-01 17:56 | ED Physician Documentation ---
PD HPI ABD PAIN - Stated complaint Stated Complaint: LOW BACK PX/NAUSEA - Chief complaint Chief Complaint: Abd Pain - History obtained from History obtained from: Patient - Additional information Additional information: Patient is a 36-year-old female presenting for evaluation of lower back and right lower abdominal pain for the last 5 days with associated nausea. She reports it is worse after eating. She denies right upper quadrant pain. She denies vomiting. She denies dysuria or hematuria, abnormal vaginal bleeding or discharge. She denies constipation or diarrhea.She has not tried anything for her pain. She denies previous abdominal surgeries. She denies concerns for . Review of Systems Constitutional: denies: Fever Nose: denies: Congestion Cardiac: denies: Chest pain / pressure Respiratory: denies: Dyspnea, Cough GI: reports: Abdominal Pain, Nausea. denies: Vomiting : denies: Dysuria Musculoskeletal: denies: Back pain Neurologic: denies: Headache PD PAST MEDICAL HISTORY - Past Medical History Psych: Depression, Anxiety - Past Surgical History Past Surgical History: No - Present Medications Home Medications: Ambulatory Orders Medication Instructions Recorded Confirmed Cholecalciferol (Vitamin D3) 1 unit PO DAILY 02/10/18 02/11/18 [Vitamin D3] Citalopram [CeleXA] 10 mg PO DAILY 02/10/18 02/11/18 Ondansetron Odt [Zofran] 4 mg TL Q6H PRN #10 tablet 02/01/22 - Allergies Allergies/Adverse Reactions: Allergies Allergy/AdvReac Type Severity Reaction Status Date / Time bee venom protein (honey bee) Allergy Anaphylaxis Verified 02/01/22 14:06 Plastic tape/ adhesives Allergy Rash Uncoded 02/01/22 14:06 bee stings AdvReac Unknown Unknown Uncoded 02/01/22 14:06 - Social History Does the pt smoke?: No Smoking Status: Never smoker Does the pt drink ETOH?: No Does the pt have substance abuse?: Yes - Immunizations Immunizations are current?: Yes - POLST Patient has POLST: No PD ED PE NORMAL - General General: Alert and oriented X 3, No acute distress, Well developed/nourished - HEENT HEENT: Atraumatic, Moist mucous membranes - Neck Neck: Supple, no meningeal sign - Cardiac Cardiac: RRR, Strong equal pulses - Respiratory Respiratory: No respiratory distress, Clear bilaterally - Abdomen Abdomen: Normal bowel sounds, Soft, Non distended, Other (Right lower quadrant tenderness to palpation) - Female Female : 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, tech), Other (Normal external exam, normal- appearing cervix, no CMT or adnexal tenderness or fullness) - Derm Derm: Warm and dry - Extremities Extremities: No edema - Neuro Neuro: Normal speech Results - Vitals Vitals: Vital Signs - 24 hr 02/01/22 02/01/22 02/01/22 14:02 17:17 19:16 Temperature 36.3 C L Heart Rate 70 63 80 Respiratory 14 18 18 Rate Blood Pressure 115/73 117/82 H 116/71 O2 Saturation 100 100 100 Oxygen O2 Source Room air - Labs Labs: Microbiology 02/01/22 18:38 Wet Prep - Final Cervix Laboratory Tests 02/01/22 02/01/22 02/01/22 14:08 14:20 14:20 WBC 6.6 RBC 5.02 Hgb 15.3 Hct 45.5 MCV 90.6 MCH 30.5 MCHC 33.6 RDW 12.2 Plt Count 222 MPV 9.6 Neut # (Auto) 4.4 Lymph # (Auto) 1.7 Trinity # (Auto) 0.4 Eos # (Auto) 0.0 Baso # (Auto) 0.0 Absolute Nucleated RBC 0.00 Nucleated RBC % 0.0 Sodium 140 Potassium 4.6 Chloride 104 Carbon Dioxide 29 Anion Gap 7.0 BUN 17 Creatinine 0.7 Estimated GFR (MDRD) 94 Glucose 95 Calcium 9.2 Total Bilirubin 0.8 AST 18 ALT 18 Alkaline Phosphatase 36 L Total Protein 7.7 Albumin 4.4 Globulin 3.3 Albumin/Globulin Ratio 1.3 Lipase 30 Urine Color YELLOW Urine Clarity CLEAR Urine pH 6.0 Ur Specific [place] >=1.030 H Urine Protein NEGATIVE Urine Glucose (UA) NEGATIVE Urine Ketones NEGATIVE Urine Occult Blood NEGATIVE Urine Nitrite NEGATIVE Urine Bilirubin NEGATIVE Urine Urobilinogen 0.2 (NORMAL) Ur Leukocyte Esterase NEGATIVE Ur Microscopic Review NOT INDICATED Urine Culture Comments NOT INDICATED Urine HCG, Qual NEGATIVE Chlam trachomat DNA PCR N.gonorrhoeae DNA (PCR) T. vaginalis (PCR) 02/01/22 18:34 WBC RBC Hgb Hct MCV MCH MCHC RDW Plt Count MPV Neut # (Auto) Lymph # (Auto) Trinity # (Auto) Eos # (Auto) Baso # (Auto) Absolute Nucleated RBC Nucleated RBC % Sodium Potassium Chloride Carbon Dioxide Anion Gap BUN Creatinine Estimated GFR (MDRD) Glucose Calcium Total Bilirubin AST ALT Alkaline Phosphatase Total Protein Albumin Globulin Albumin/Globulin Ratio Lipase Urine Color Urine Clarity Urine pH Ur Specific [place] Urine Protein Urine Glucose (UA) Urine Ketones Urine Occult Blood Urine Nitrite Urine Bilirubin Urine Urobilinogen Ur Leukocyte Esterase Ur Microscopic Review Urine Culture Comments Urine HCG, Qual Chlam trachomat DNA PCR NEGATIVE N.gonorrhoeae DNA (PCR) NEGATIVE T. vaginalis (PCR) NEGATIVE - Rads (name of study) Pelvic U/S Radiology: Other (Per U/S tech: no torsion, ?pelvic congestion) PD MEDICAL DECISION MAKING - ED course Complexity details: reviewed results, re-evaluated patient, d/w patient ED course: Patient presenting for evaluation of right lower abdominal pain that has been ongoing for 5 days. Vital signs are reassuring and labs are unremarkable. A CT scan was obtained which does not show signs of appendicitis or other causes for her pain. A pelvic exam was done which does not demonstrate signs for PID. Pelvic ultrasound is negative for torsion. Patient is overall feeling well without need for further pain medication.Her repeat abdominal exam is relatively benign And does not suggest an acute abdomen. No RUQ TTP. She was counseled on need for close follow-up with her primary care doctor. She was also counseled on concerning symptoms to return for. Departure - Departure Disposition: 01 Home, Self Care Clinical Impression: Right lower quadrant abdominal pain, Pelvic congestion syndrome Condition: Stable Instructions: Pelvic Congestion Syndrome, ED Abdominal Pain Female Non-Specific Abdominal Pain Prescriptions: Ondansetron Odt [Zofran] 4 mg TL Q6H PRN #10 tablet PRN Reason: Nausea / Vomiting Comments: You were evaluated for right lower abdominal pain. Your labs were overall reassuring and your urine did not show signs of an infection. A CT scan of your abdomen and pelvis did not show signs of appendicitis, kidney stone or other acute process. An ultrasound was also obtained to take a look at your ovaries and there is no signs of an ovarian cyst or other complication with your ovary. You may have some signs of pelvic congestion syndrome on your ultrasound I would recommend close follow-up with a supplier specialist. I have sent a prescription for nausea medications to [facility] in [place]. Please stick with a bland diet. If you have any worsening symptoms please return to the emergency department. Otherwise please follow-up with your primary care doctor as you may need further testing or work-up. Forms: Activity restrictions Discharge Date/Time: 02/01/22 19:18
--- NOTE | 2022-02-01 18:54 | Ultrasound Report ---
PROCEDURE: Pelvic w/Transvag+Doppler Comp INDICATIONS: R adnexal pain TECHNIQUE: Real-time scanning was performed of the pelvic organs, with image documentation. Additional endovagi nal scanning was necessary due to incomplete visualization of the adnexal and endometrial structures by transabdominal scanning. Doppler interrogation was performed of the ovaries bilaterally. COMPARISON: None. FINDINGS: No pathologic free abdominal or pelvic fluid. Uterus: Uterus is normal in size at 8.5 x 3.8 x 6.4 cm. The endometrium measures 5.3 mm in combined thickness. Ovaries: Right left ovaries measure 2.5 x 1.7 x 2.4 cm and 2.1 x 1.3 x 1.3 cm respectively. Normal a ppearing arterial and venous waveforms are confirmed to each ovary.] Other: No free pelvic fluid. IMPRESSION: Unremarkable ultrasound pelvis Reviewed by: New Bright MD on 02/01/2022 5:53 PM [email or web address] Approved by: New Bright MD on 02/01/2022 5:53 PM AKDT Station ID: [id number]
[2022-02-01 19:18] VITALS: BP 116/71
[2022-02-02 00:01] LABS: CHLAMYDIA TRACHOMATIS DNA NEGATIVE (NEGATIVE); NEISSERIA GONORRHOEAE DNA NEGATIVE (NEGATIVE); TRICHOMONAS VAGINALIS DNA NEGATIVE (NEGATIVE)
== END 2022-02-01 19:18 | disposition home or self-care (01) ==
LOC: ED 13:43
DX: N94.89 Other specified conditions associated with female genital organs and menstrual cycle (principal)
CPT/HCPCS: 36415; 74177; 76830; 76856; 80053; 81003; 81025; 83690; 85025; 87210; 87491; 87591; 87661; 93975; 96374; 99284; Q9967; 81001; 81514; 87086

== ENCOUNTER 2023-01-03 08:00 | Outpatient (CLI) | payer BC ==
[2023-01-03 18:03] LABS: CHLAMYDIA TRACHOMATIS DNA NEGATIVE (NEGATIVE); NEISSERIA GONORRHOEAE DNA NEGATIVE (NEGATIVE)
[2023-01-03 19:53] LABS: BACTERIAL VAGINOSIS DNA NEGATIVE (NEGATIVE); CANDIDA GLABRATA DNA NEGATIVE (NEGATIVE); CANDIDA GROUP DNA NEGATIVE (NEGATIVE); CANDIDA KRUSEI DNA NEGATIVE (NEGATIVE); TRICHOMONAS VAGINALIS DNA NEGATIVE (NEGATIVE)
== END 2023-01-03 23:59 | disposition home or self-care (01) ==
LOC: LAB.WC 08:00
PROVIDERS: ATTEND Nurse Practitioner
DX: L29.8 Other pruritus (principal); Z11.3 Encounter for screening for infections with a predominantly sexual mode of transmission
CPT/HCPCS: 81514; 81599; 87109; 87491; 87591; 87661